=== PATIENT | male | born 1965 | race Caucasian/White ===

== ENCOUNTER → 2017-08-12 | Outpatient (CLI) | payer OTHER | END | disposition home or self-care (01) | LOC: RAD 13:07 | PROVIDERS: ATTEND Nurse Practitioner | DX: J98.6 Disorders of diaphragm (principal) | CPT/HCPCS: 71250 ==

== ENCOUNTER 2020-11-09 21:04 | Emergency (ER) | payer BC, OTHER ==
[~2020-11-09] VITALS: Ht 182.9 cm; Wt 95.5 kg
[2020-11-09 21:14] VITALS: BP 189/111
[2020-11-09] MEDS ORDERED: LIDOCAINE 1%, 10ML INFIL ONE (21:30)
[2020-11-09] MEDS ORDERED: DIPH,PERTUSS(ACELL),TET VAC/PF 0.5 ML IM-VACC ONE ×2 (21:30→23:18)
[2020-11-09] MEDS ORDERED: LIDOCAINE-MPF 1%, 5ML ONE (23:17)
[2020-11-09] MEDS ORDERED: BACITRACIN ZINC OINT 500U/GM, 0.9 GM ONE ×2 (23:37)
--- NOTE | 2020-11-09 23:43 | NUR ---
BITE WOUNDS ON RIGHT HAND IRRIGATED UNDER PRESSURE WITH 1L NS. PT TOLERATED WELL
--- NOTE | 2020-11-10 00:37 | NUR ---
Patient given discharge instructions and they have confirmed that they understand the instructions. Patient ambulatory with steady gait. NAD, all questions answered appropriately, denies additional needs at this time. No personal belongings left in room after discharge.
== END 2020-11-10 00:38 | disposition home or self-care (01) ==
LOC: ED 21:30
DX: S61.451A Open bite of right hand, initial encounter (principal); S61.411A Laceration without foreign body of right hand, initial encounter; W54.0XXA Bitten by dog, initial encounter; Y93.89 Activity, other specified; Y92.89 Other specified places as the place of occurrence of the external cause; Y99.8 Other external cause status
CPT/HCPCS: 12004; 90471; 90715; 99283